=== PATIENT | female | born 1950 | race Caucasian/White ===

== ENCOUNTER 2017-11-16 10:40 | Emergency (ER) | payer OTHER ==
[2017-11-16 11:27] VITALS: BP 174/86; PULSE 72; TEMP 97.9; BMI 30.9
--- NOTE | 2017-11-16 12:11 | PDOC ---
History of Present Illness - General Chief Complaint: Respiratory Stated Complaint: COUGH Time Seen by Provider: 11/16/17 11:32 - History of Present Illness Initial Comments: 11/16/17 12:15 67-year-old female with a history of asthma, hypertension, hyperlipidemia, coronary artery disease status post stent, bilateral breast cancer in remission presents emergency Department with persistent cough for 3 days. Patient states she has a dry cough that occurs in fits and keeps her up at night. Denies any shortness of breath. Reports intermittent production of white phlegm. Pt has been taking her nebulizers at home but they have not been stopping her cough. Denies chest pain. States this feels like bronchitis which she has had in the past. Patient attempted to see her primary doctor today but they were out of the office. Denies any fevers, chills. Denies headache, weakness, dizziness, abdominal pain, nausea, vomiting, lower extremity edema. Past History - Past Medical History Allergies/Adverse Reactions: Allergies Allergy/AdvReac Type Severity Reaction Status Date / Time No Known Allergies Allergy Verified 11/16/17 11:16 Home Medications: Ambulatory Orders Albuterol Sulfate Inhaler - [Ventolin Hfa Inhaler -] 2 inh PO Q6H PRN 11/16/17 Aspirin Coated [Ecotrin -] 81 mg PO DAILY 11/16/17 Atorvastatin Ca [Lipitor] 80 mg PO DAILY 11/16/17 Azithromycin [Zithromax Tri-Alexandro (3 DAYS) -] 500 mg PO DAILY #3 tablet 11/16/17 Duloxetine HCl [Cymbalta] 60 mg PO DAILY 11/16/17 Hydrochlorothiazide [Hctz -] 12.5 mg PO DAILY 11/16/17 Metoprolol Succinate [Toprol Xl] 25 mg PO DAILY 11/16/17 Montelukast Na [Singulair -] 10 mg PO DAILY 11/16/17 Prednisone [Prednisone 50 MG TABLETS] 50 mg PO DAILY #5 tablet 11/16/17 Asthma: Yes Cancer: Yes (CARCINOMA IN-SITU RIGHT BREAST) Cardiac Disorders: Yes (STENT X1) COPD: No HTN: Yes Hypercholesterolemia: Yes - Suicide/Smoking/Psychosocial Hx Smoking History: Never smoked Hx Alcohol Use: No Drug/Substance Use Hx: No Review of Systems - Review of Systems Comments:: 11/16/17 12:17 GENERAL/CONSTITUTIONAL: No fever or chills. No weakness. HEAD, EYES, EARS, NOSE AND THROAT: No change in vision. No ear pain or discharge. No sore throat. GASTROINTESTINAL: No nausea, vomiting, diarrhea or constipation. GENITOURINARY: No dysuria, frequency, or change in urination. CARDIOVASCULAR: No chest pain or shortness of breath. RESPIRATORY: No wheezing, or hemoptysis. +cough MUSCULOSKELETAL: No joint or muscle swelling or pain. No neck or back pain. SKIN: No rash NEUROLOGIC: No headache, vertigo, loss of consciousness, or change in strength/ sensation. ENDOCRINE: No increased thirst. No abnormal weight change. HEMATOLOGIC/LYMPHATIC: No anemia, easy bleeding, or history of blood clots. ALLERGIC/IMMUNOLOGIC: No hives or skin allergy. *Physical Exam - Vital Signs Last Vital Signs Temp Pulse Resp BP Pulse Ox 97.9 F 72 16 174/86 97 11/16/17 11:16 11/16/17 11:16 11/16/17 11:16 11/16/17 11:16 11/16/17 11:16 - Physical Exam Comments: 11/16/17 12:18 GENERAL: Awake, alert, and fully oriented, in no acute distress HEAD: No signs of trauma EYES: PERRLA, EOMI, sclera anicteric, conjunctiva clear ENT: Auricles normal inspection, hearing grossly normal, nares patent, oropharynx clear without exudates. Moist mucosa NECK: Normal ROM, supple, no lymphadenopathy, JVD, or masses LUNGS: Breath sounds equal, clear to auscultation bilaterally. No wheezes, and no crackles HEART: Regular rate and rhythm, normal S1 and S2, no murmurs, rubs or gallops ABDOMEN: Soft, nontender, normoactive bowel sounds. No guarding, no rebound. No masses EXTREMITIES: Normal range of motion, no edema. No clubbing or cyanosis. No cords, erythema, or tenderness NEUROLOGICAL: Normal speech, cranial nerves intact, negative pronator drift, 5/ 5 strength in all 4 extremities, normal sensation to light touch in all 4 extremities, normal cerebellar exam, normal gait, normal reflexes and tone SKIN: Warm, Dry, normal turgor, no rashes or lesions noted. Medical Decision Making - Medical Decision Making 11/16/17 12:19 59-year-old female with multiple medical problems including asthma presents to the emergency Department with persistent cough, intermittently productive of white sputum. Vitals unremarkable. Exam is normal with clear lungs, no wheezing or crackles. Likely bronchitis. Patient does not appear infected - no fevers, crackles on exam, hypoxia. Patient also has no wheezing. Will treat the patient with prednisone and azithromycin and discharge to follow-up with her primary doctor. I discussed the physical exam findings, ancillary test results and final diagnoses with the patient. I answered all of the patient's questions. The patient was satisfied with the care received and felt comfortable with the discharge plan and treatment plan. The patient will call their primary care physician within 24 hours to arrange follow-up and will return to the Emergency Department with any new, persistent or worsening symptoms. *DC/Admit/Observation/Transfer Diagnosis at time of Disposition: Bronchitis - Discharge Dispostion Disposition: HOME Condition at time of disposition: Good - Prescriptions Prescriptions: Azithromycin [Zithromax Tri-Alexandro (3 DAYS) -] 500 mg PO DAILY #3 tablet Prednisone [Prednisone 50 MG TABLETS] 50 mg PO DAILY #5 tablet - Referrals - Patient Instructions Printed Discharge Instructions: DI for Acute Bronchitis Additional Instructions: As discussed, follow-up with your primary doctor within 1-2 days. Take the medications as prescribed. Return to the emergency department if you have any new, worsening or concerning symptoms. - Post Discharge Activity Forms/Work/School Notes: Back to Work - Attestations Physician Attestion: 11/16/17 12:11 I, Dr. Marina Main MD, attest that this document has been prepared under my direction and personally reviewed by me in its entirety. I further attest, that it accurately reflects all work, treatment, procedures and medical decision -making performed by me.
== END 2017-11-16 12:19 | disposition home or self-care (01) ==
LOC: FER 10:40
DX: J40 Bronchitis, not specified as acute or chronic (principal); Z85.3 Personal history of malignant neoplasm of breast; I10 Essential (primary) hypertension; E78.5 Hyperlipidemia, unspecified; I25.10 Atherosclerotic heart disease of native coronary artery without angina pectoris
CPT/HCPCS: 99281-25

== ENCOUNTER 2021-06-15 10:50 | Emergency (ER) | payer OTHER ==
[2021-06-15 11:04] VITALS: BP 157/81; PULSE 76; TEMP 97.8; BMI 30.9
[2021-06-17 17:08] LABS: SARS-CoV-2 NAA Detected (Not Detected)
== END 2021-06-15 11:30 | disposition home or self-care (01) ==
LOC: FER 10:50
DX: J06.9 Acute upper respiratory infection, unspecified (principal)
CPT/HCPCS: 99283-25; C9803; U0003; U0005

== ENCOUNTER 2021-08-01 12:44 | Emergency (ER) | payer OTHER ==
[2021-08-01 12:59] VITALS: TEMP 98.7; BMI 30.9
[2021-08-01 14:29] LABS: EPI CELLS >36 /uL (0-25.1); HYALINE CASTS 1 /uL (0-3.1); URINE APPEARANCE CLEAR; URINE BACTERIA 1452 /uL (0-1359); URINE BILIRUBIN NEGATIVE (NEGATIVE); URINE COLOR YELLOW; URINE GLUCOSE (UA) NEGATIVE (NEGATIVE); URINE KETONE NEGATIVE (NEGATIVE); URINE LEUK ESTERASE 3+ (NEGATIVE); URINE NITRITE NEGATIVE (NEGATIVE); URINE PROTEIN NEGATIVE (NEGATIVE); URINE RBC 15 /uL (0-23.9); URINE UROBILINOGEN 0.2 mg/dL (0.2-1.0); URINE WBC 92 /uL (0-25.8)
[2021-08-01 14:40] LABS: BASO % 0.3 % (0-2.0); EOS % 0.1 % (0-4.5); HEMATOCRIT 39.9 % (32.4-45.2); HEMOGLOBIN 12.9 GM/dL (10.7-15.3); LYMPH % 11.7 % (8-40); MCH 29.2 pg (25.7-33.7); MCHC 32.4 g/dl (32.0-36.0); MEAN CELL VOLUME 90.3 fl (80-96); MEAN PLT VOLUME 8.2 fl (7.5-11.1); MONO % 6.4 % (3.8-10.2); NEUT % 81.5 % (42.8-82.8); PLATELET COUNT 331 10^3/uL (134-434); RBC 4.42 M/mm3 (3.60-5.2); RDW 14.1 % (11.6-15.6); WHITE BLOOD COUNT 11.6 K/mm3 (4.0-10.0)
[2021-08-01] MEDS ORDERED: CEFTRIAXONE 1,000 MG in DEXTROSE 5%-WATER - 50 ML IVPB ONE (14:52)
[2021-08-01 14:54] LABS: ACTIVATED PTT 31.1 SECONDS (25.2-36.5); INR 0.99 (0.83-1.09); PROTHROMBIN TIME (PATIENT) 11.4 SEC (9.7-13.0)
[2021-08-01] MEDS ORDERED: CEFTRIAXONE 1 GM/50 ML BAG ONE (14:57)
[2021-08-01 15:16] LABS: BLOOD UREA NITROGEN 8.8 mg/dL (7-18); CALCIUM 9.7 mg/dL (8.5-10.1)
[2021-08-01 15:17] VITALS: BP 156/77; PULSE 78
[2021-08-01 15:17] LABS: ALBUMIN 3.8 g/dl (3.4-5.0)
[2021-08-01 15:20] LABS: CREATININE 0.7 mg/dL (0.55-1.3)
[2021-08-01 15:21] LABS: BILIRUBIN,TOTAL 0.5 mg/dL (0.2-1); TOT PROT 7.6 g/dl (6.4-8.2)
[2021-08-01 16:01] LABS: ERYTHROCYTE SEDIMENTATION RATE 18 mm/hr (0-30)
== END 2021-08-01 18:00 | disposition home or self-care (01) ==
LOC: JER 12:44
PROC: 3E033GC Introduction of Other Therapeutic Substance into Peripheral Vein, Percutaneous Approach (ICD-10-PCS; principal; 2021-08-01)
DX: G43.909 Migraine, unspecified, not intractable, without status migrainosus (principal); N39.0 Urinary tract infection, site not specified
CPT/HCPCS: 36415; 70450-TC; 80053; 80061; 81003; 83036; 83690; 84484; 85025; 85610; 85651; 85730; 86140; 93005; 93010; 99285-25